=== PATIENT | male | born 1965 | race Caucasian/White ===

== ENCOUNTER → 2021-03-18 | Day surgery (SDC) | payer OTHER | END | disposition home or self-care (01) | LOC: JRADIR 08:48 | PROVIDERS: ATTEND Internal Medicine | PROC: 0G9G3ZX Drainage of Left Thyroid Gland Lobe, Percutaneous Approach, Diagnostic (ICD-10-PCS; principal; 2021-03-18) | DX: E04.1 Nontoxic single thyroid nodule (principal) | CPT/HCPCS: 10005; 76942; 88173; 88305-TC ==

== ENCOUNTER 2022-01-26 04:06 | Day surgery (SDC) | payer OTHER ==
[2022-01-20 12:45] VITALS: BMI 32.5
[2022-01-26] MEDS ORDERED: PROPOFOL 20 ML ONE ×2 (07:07→10:07)
[2022-01-26] MEDS ORDERED: LIDOCAINE HCL 2% 100 MG/5 ML DISP.SYRIN ONE (07:08)
[2022-01-26] MEDS ORDERED: ROCURONIUM BROMIDE 50 MG/5 ML SYRINGE ONE (07:09)
[2022-01-26] MEDS ORDERED: SUCCINYLCHOLINE CHLORIDE 200 MG/10 ML SYRINGE ONE (07:09)
[2022-01-26] MEDS ORDERED: COCAINE HCL 4% TOPICAL SOLUTION 4 ML BOTTLE TP ONE ×3 (07:09→08:24)
[2022-01-26] MEDS ORDERED: LIDOCAINE 1%/EPI 1:100000 (20 ML MULTI DOSE VIAL) ONE (07:10)
[2022-01-26] MEDS ORDERED: LIDOCAINE 1%/EPI 1:100000 (20 ML MULTI DOSE VIAL) INF ONE ×4 (07:32→08:24)
[2022-01-26] MEDS ORDERED: SEVOFLURANE 250 ML BTL ONE (07:35)
[2022-01-26] MEDS ORDERED: MIDAZOLAM HCL 2 MG/2 ML SINGLE DOSE VIAL ONE (07:37)
[2022-01-26] MEDS ORDERED: oxyCODONE HCL 5 MG TABLET PO PRN ×2 (07:42)
[2022-01-26] MEDS ORDERED: LACTATED RINGERS SOLUTION 1,000 ML IV SCH (07:45)
[2022-01-26] MEDS ORDERED: HYDROmorphone HCl 2 MG/ML VIAL ONE (08:16)
[2022-01-26] MEDS ORDERED: ceFAZolin 2 GRAM PREMIX BAG IVPB ONE (08:18)
[2022-01-26] MEDS ORDERED: ceFAZolin SODIUM 1 GM VIAL ONE (08:26)
[2022-01-26] MEDS ORDERED: NEOSTIGMINE METHYLSULFATE 0.5 MG/ML - 10 ML MDV ONE (08:38)
[2022-01-26] MEDS ORDERED: GLYCOPYRROLATE 0.2 MG/1 ML VIAL ONE ×2 (08:38)
[2022-01-26] MEDS ORDERED: DEXMEDETOMIDINE HCL 200 MCG/2 ML IVPB ONE (09:53)
[2022-01-26] MEDS ORDERED: DEXAMETHASONE SOD PHOSPHATE 4 MG/1 ML VIAL ONE (09:55)
[2022-01-26] MEDS ORDERED: ACETAMINOPHEN 325 MG TABLET (FP) PO ONE (14:00)
[2022-01-26] MEDS ORDERED: ACETAMINOPHEN 650 MG/20.3 ML ORAL SOLUTION (CUPS) ONE (14:00)
[2022-01-26 14:18] VITALS: RESP 18
[2022-01-26 16:29] VITALS: BP 110/70; PULSE 98; TEMP 98.2
== END 2022-01-26 15:30 | disposition home or self-care (01) ==
LOC: JASU-SURG 04:06
PROVIDERS: ATTEND Otolaryngology
PROC: 09TU8ZZ Resection of Right Ethmoid Sinus, Via Natural or Artificial Opening Endoscopic (ICD-10-PCS; 2022-01-26)
PROC: 09BV8ZZ Excision of Left Ethmoid Sinus, Via Natural or Artificial Opening Endoscopic (ICD-10-PCS; 2022-01-26)
PROC: 09B Ear, Nose, Sinus, Excision (ICD-10-PCS; 2022-01-26)
PROC: 09BM8ZZ Excision of Nasal Septum, Via Natural or Artificial Opening Endoscopic (ICD-10-PCS; 2022-01-26)
PROC: 09TL8ZZ Resection of Nasal Turbinate, Via Natural or Artificial Opening Endoscopic (ICD-10-PCS; 2022-01-26)
PROC: 09TV8ZZ Resection of Left Ethmoid Sinus, Via Natural or Artificial Opening Endoscopic (ICD-10-PCS; principal; 2022-01-26 08:00)
DX: J32.4 Chronic pansinusitis (principal); J34.2 Deviated nasal septum; J34.3 Hypertrophy of nasal turbinates
CPT/HCPCS: 88304-TC; 88311-TC; 94760

== ENCOUNTER 2023-06-19 15:15 | Emergency (ER) | payer OTHER ==
[2023-06-19] MEDS ORDERED: IBUPROFEN 600 MG TABLET (FP) PO ONE ×2 (15:31→15:36)
[2023-06-19 15:41] VITALS: BP 137/94; TEMP 97.8; BMI 31.4
[2023-06-19 17:11] VITALS: PULSE 88; RESP 16
== END 2023-06-19 17:10 | disposition home or self-care (01) ==
LOC: FER 15:15
DX: S06.0X0A Concussion without loss of consciousness, initial encounter (principal); S16.1XXA Strain of muscle, fascia and tendon at neck level, initial encounter; S20.219A Contusion of unspecified front wall of thorax, initial encounter; R07.9 Chest pain, unspecified; V49.40XA Driver injured in collision with unspecified motor vehicles in traffic accident, initial encounter; Y93.I9 Activity, other involving external motion; Y92.410 Unspecified street and highway as the place of occurrence of the external cause
CPT/HCPCS: 70450-TC; 71046-TC-FY; 71101-TC-LT-FY; 72125-TC; 73030-TC-LT-FY; 93005; 99285-25